=== PATIENT | female | born 1995 | race Caucasian/White ===

== ENCOUNTER 2024-11-24 18:52 | Day surgery (SDC) | payer OTHER, SELFPAY ==
--- OUTSIDE RECORDS SUMMARY | 2024-11-24 18:53 | XMS_ITS | Encounter Summary ---
Author Organization [facility] Address [address] [place] [address] Care Team Providers Care Rayon Winder Name Role Phone No Ref-Primary, Physician Primary Care Provider Natalia Christine MD Unavailable [phone] Meka Sandy APRN RN BIRTHING Unavailable Ioana Cho AuD Unavailable Alfredo Drake MD Unavailable Reason for Visit * Reason Comments Urgent Care Pt lived in an apart ment with mold exposure and then moved-had a bad cough a month ago and now is having heaviness in chest, SOB, L ear pain, fatigue, chest congestion, night sweats Encounter Details Date Type Department Care Team (Late st Contact Info) Description 11/21/2024 1:50 PM CDT Office Visit [facility] [address] [address] Rubi Garcia PA-C [address] [place] [id number] Acute dysfunction of left eustachian tube (Primary Dx); Allergic rhinitis, unspecified seasonality, unspecified trigger Social History Tobacco Use Types Packs/Day Years Used Date Smoking Tobacco: Never Smokeless Tobacco: Never Alcohol Use Standard Drinks/Week Comments Yes 0 (1 standard drink = 0.6 oz pur e alcohol) socailly PHQ-2 Answer Date Recorded PHQ-2 Score 2 11/20/2023 Adolescent Education Answer Date Record ed Getting School Help Needed Not on file 05/10 Comments No Sex and Gender Information Value Date Recorded Sex Assigned at Not on file Legal Sex Female 11:23 AM CDT Gender Identity Not on file Sexual Orientation Not on file documented as of this encounter Last Filed Vital Signs Vital Sign Reading Time Taken Comments Blood Pressure 131/86 11/21/2024 3:08 PM CDT Pulse 77 11/21/2024 3:08 PM CDT Temperature 37.2 C (98.9 F) 11/21/2024 3:08 PM CDT Respiratory Rate 16 11/21/2024 3:08 PM CDT Oxygen Saturation 99% 11/21/2024 3:08 PM CDT Inhaled Oxygen Concentration - - Weight 82.1 kg (181 lb) 11/21/2024 3:08 PM CDT Height - - Body Mass Index 32.06 08/05/2023 5:37 PM NUTRITION AIDES TEACHER documented in this encounter Patient Instructions * Patient Instructions* Rubi Garcia PA-C - 11/21/2024 1:50 PM CDT (H69.92) Acute dysfunction of left eustachian tube (primary encounter diagnosis) Comment: Plan: fluticasone (FLONASE) 50 MCG/ACT nasal spray Flonase 2 sprays each nostril at bedtime for the next 2-3 weeks. You may use a saline nasal spray during the day to help flush out nasal passages and moisturize them. (J30.9) Allergic rhinitis, unspecified seasonality, unspecified trigger Comment: Plan: levocetirizine (XYZAL) 5 MG tablet Take xyzal nightly for the next month Follow up with primary clinic for re-check in the next month, sooner should symptoms persist or worsen. documented in this encounter Progress Notes * Rubi Garcia PA-C - 11/21/2024 1:50 PM CDT Patient presents with: Urgent Care: Pt lived in an apartment with mold exposure and then moved-had a bad cough a month agoand now is having heaviness in chest, SOB, L ear pain, fatigue, chest congestion, night sweats (H69.92) Acute dysfunction of left eustachian tube (primary encounter diagnosis) Comment: Plan: fluticasone (FLONASE) 50 MCG/ACT nasal spray Flonase 2 sprays each nostril at bedtime for the next 2-3 weeks. You may use a saline nasal spray during the day to help flush out nasal passages and moisturize them. (J30.9) Allergic rhinitis, unspecified seasonality, unspecified trigger Comment: Plan: levocetirizine (XYZAL) 5 MG tablet Take xyzal nightly for the next month Follow up with primary clinic for re-check in the next month, sooner should symptoms persist or worsen. At the end of the encounter, I discussed results, diagnosis, medications. Discussed red flags for immediate return to clinic/ER, as well as indications for follow up if no improvement. Patient understood and agreed to plan. Patient was stable for discharge If not improving or if condition worsens, follow up with your Primary Care Provider SUBJECTIVE: Milagros Ramesh is a 29 year old female who presents today with nasal congestion for the past coupleof months. Now with left ear pain for the past couple of days. No ear drainage. Low grade fever a couple of nights ago. Denies any weight loss. Patient Active Problem List Diagnosis ASCUS with positive high risk HPV cervical No past medical history on file. Current Outpatient Medications Medication Sig Dispense Refill Multiple Vitamins-Iron (DAILY-ALESSANDRA/IRON/BETA-CAROTENE) TABS TAKE 1 TABLET BY MOUTH DAILY. (Patient not taking: Reported on 06/05/2020) 30 tablet 7 Social History Tobacco Use Smoking status: Never Smoker Smokeless tobacco: Never Used Substance Use Topics Alcohol use: Not on file Family History Problem Relation Age of Onset Diabetes Mother Diabetes Father ROS: 10 point ROS of systems including Constitutional, Eyes, Respiratory, Cardiovascular, Gastroenterology, Genitourinary, Integumentary, Muscularskeletal, Psychiatric ,neurological were all negative except for pertinent positives noted in my HPI OBJECTIVE: BP 131/86 Pulse 77 Temp 98.9 ??F (37.2 ??C) (Tympanic) Resp 16 Wt 82.1 kg (181 lb) SpO2 99% BMI 32.06 kg/m?? Physical Exam: GENERAL APPEARANCE: healthy, alert and no distress EYES: EOMI, PERRL, conjunctiva clear HENT: ear canals and TM's normal. Nose and mouth without ulcers, erythema or lesions NECK: supple, nontender, no lymphadenopathy RESP: lungs clear to auscultation - no rales, rhonchi or wheezes CV: regular rates and rhythm, normal S1 S2, no murmur noted NEURO: Normal strength and tone, sensory exam grossly normal, normal speech and mentation SKIN: no suspicious lesions or rashes documented in this encounter Plan of Treatment Not on file documented as of this encounter Visit Diagnoses Diagnosis Acute dysfunction of left eustachian tube- Primary Allergic rhinitis, unspecified seasonality, unspecified trigger documented in this encounter Additional Health Concerns Assessment Noted Time PHQ-9 Depression Total Score: 9 03/03/20 3:47 PM CDT documented as of this encounter Care Teams Rayon Winder Relationship Specialty Start Date End Date No Ref-Primary, Physician PCP - General 09/26/21 Natalia Christine MD [address] [place] [address] Assigned PCP 07/31/22 Meka Sandy APRN RN BIRTHING [address] [facility] 100 [place] [address] Assigned OBGYN Provider 03/08/23 Ioana Cho AuD [address] [facility] 200 [place] [address] Tubular Products Fabricator Audiology 05/20/23 [place] [address] [place] [address] [place] [address] Otolaryngology 05/20/23 documented as of this encounter
--- OUTSIDE RECORDS SUMMARY | 2024-11-24 18:53 | XMS_ITS | Encounter Summary ---
Author Organization [facility] Address [address] [place] [address] Care Team Providers Care Drop Wire Hanger Name Role Phone No Ref-Primary, Physician Primary Care Provider Natalia Christine MD Unavailable [phone] Meka Sandy APRN INVENTORY AND PRICING ASSOCIATE Unavailable Ioana Cho AuD Unavailable Alfredo Drake MD Unavailable Encounter Details Date Type Department Care Team (Latest Contact Info) Description 11/21/2024 Travel Social History Tobacco Use Types Packs/Day Years [...] on file documented as of this encounter Plan of Treatment Not on file documented as of this encounter Visit Diagnoses Not on filedocumented in this encounter Additional Health Concerns Assessment Noted Time PHQ-9 Depression Total Score: 9 03/03/20 23 3:47 PM CDT documented as of this encounter Care Teams Drop Wire Hanger Relationship Specialty Start Date End Date No Ref-Primary, Physician PCP - General 09/26/21 Natalia Christine MD [address] [place] [address] Assigned PCP 07/31/22 Meka Sandy APRN INVENTORY AND PRICING ASSOCIATE [address] [facility] 100 [place] [address] Assigned OBGYN Provider 03/08/23 Ioana Cho AuD [address] [place] [address] [address] [place] [address] Health Care Administrator Audiology 05/20/23 Alfredo Drake MD [address] [place] [address] Otolaryngology 05/20/23 documented as of this encounter
--- OUTSIDE RECORDS SUMMARY | 2024-11-24 18:53 | XMS_ITS | Clinical Summary ---
Author Organization [facility] Address [address] [place] [address] Care Team Providers Care Production Expert Name Role Phone No Ref-Primary, Physician Primary Care Provider Natalia Christine MD Unavailable [phone] Meka Sandy APRN PUMPING STATION ENGINEER Unavailable Ioana Cho Unavailable Alfredo Drake MD Unavailable Allergies No known active allergies Medications fluticasone (FLONASE) 50 MCG/ACT nasal sprayIndications :OME (otitis media with effusion), left [place] 1 spray into both nostrils daily 16 g 11 3 Active ibuprofen (ADVIL/MOTRIN) 600 MG tabletIndication s:Throat pain,Left ear pain Take 1 tablet (600 mg) by mouth every 6 hours as needed 30 tablet 4 03/08/20 25 Active drospirenone-eth inyl estradiol (DALI) 3-0.02 MG tabletIndication s:Amenorrhea,PCO S (polycystic ovarian syndrome) TAKE 1 TABLET BY MOUTH DAILY 84 tablet 4 Active fluticasone (FLONASE) 50 MCG/ACT nasal sprayIndications :Acute dysfunction of left eustachian tube [place] 2 sprays into both nostrils daily. 18.2 mL 5 Active levocetirizine (XYZAL) 5 MG tabletIndication s:Allergic rhinitis, unspecified seasonality, unspecified trigger Take 1 tablet (5 mg) by mouth every evening. 30 tablet 1 Active Active Problems Problem Noted Date Diagnosed Date ASCUS with positive high risk HPV cervical 03/03 Overview (10/15/2023): 03/30/20 NIL pap 03/03/23 ASCUS pap, + HR HPV (not 16/18). Plan colp bef 06/03/23 03/12/23 Left message / Result released to patient via [employer] - not read 03/26/23 Left message 04/02/23 Result letter sent by mail 05/08/23 Certified ltr sent. Tracking # [id number] [Result marked as Seen by patient Milagros Ramesh on 05/10/2023 4:18 PM] 05/19/23 Consult visit with provider re: results and amenorrhea. Recommended to have colpo (not scheduled) 06/04/23 Reminder MyChart 07/08/23 [place] not done. Tracking updated for 6 mo colp/pap due 09/03/23 08/20/23 Reminder MyChart 09/16/23 Reminder call - left message 10/15/23 Lost to follow-up for pap tracking Encounters Date Type Department Care Team Description 11/21/2024 1:50 PM CDT Office Visit [facility] [address] [address] Rubi Garcia, PAJyotiC Acute dysfunction of left eustachian tube (Primary Dx); Allergic rhinitis, unspecified seasonality, unspecified trigger 11/21/2024 Travel from Last 3 Months Immunizations Name Administration Dates Next Due TDAP (Adacel,Boostrix) 04/04/2020,03/27/2010 Family History Medical History Relation Comments Diabetes Other Fathers uncle Glaucoma Other paternal great g randmother Relation Status Comments Other Social History Tobacco Use Types Packs/Day Years Used Date Smoking Tobacco: Never Smokeless Tobacco: Never Tobacco Cessation:Counseling Given: No Alcohol Use Standard Drinks/Week Comments Yes 0 (1 standard drink = 0.6 oz pur e alcohol) socailly PHQ-2 Answer Date Recorded PHQ-2 Score 2 11/20/2023 Adolescent Education Answer Date Record ed Getting School Help Needed Not on file 09/23 /2023 Comments No Sex and Gender Information Value Date Recorded Sex Assigned at Not on file Legal Sex Female 11:23 AM CDT Gender Identity Not on file Sexual Orientation Not on file Last Filed Vital Signs Vital Sign Reading Time Taken Comments Blood Pressure 131/86 11/21/2024 3:08 PM CDT Pulse 77 11/21/2024 3:08 PM CDT Temperature 37.2 C (98.9 F) 11/21/2024 3:08 PM CDT Respiratory Rate 16 11/21/2024 3:08 PM CDT Oxygen Saturation 99% 11/21/2024 3:08 PM CDT Inhaled Oxygen Concentration - - Weight 82.1 kg (181 lb) 11/21/2024 3:08 PM CDT Height 160 cm (5' 3) 08/05/2023 5:37 PM DERMATOLOGIST Body Mass Index 32.06 08/05/2023 5:37 PM DERMATOLOGIST Plan of Treatment Health Maintenance Due Date Last Done Comments ADVANCE CARE PLANNING 1997 ANNUAL REVIEW OF HM ORDERS 1997 COLPOSCOPY 06/03/2023 PAP 03/03/2024 03/03/2023, 03/18, 03/30/2020 YEARLY PREVENTIVE VISIT 03/03/2024 03/03/2023 COVID-19 Vaccine ( season) 2024 02/02/2021, 01/05/2021 INFLUENZA VACCINE (#1) 2024 , 05/02/2021, 05/13/2013, Additional history exists PHQ-2 (once per calendar year) 2024 11/20/2023, 03/03/2023, 03/03/2023, Additional history exists DTAP/TDAP/TD IMMUNIZATION (8 - Td or Tdap) 04/04/2030 04/04/2020, 03/27/2010, 03/10/2003, Additional history exists ZOSTER IMMUNIZATION (1 of 2) 2047 HEPATITIS B IMMUNIZATION Completed 998, 1997, 1997 HPV IMMUNIZATION Completed 11/24/2013, , 06/29/2012 MENINGITIS IMMUNIZATION Completed 11/24/2013, 03/27 CHLAMYDIA SCREENING Discontinued 03/03/2023, 0 HEPATITIS C SCREENING Completed 03/03/2023, 012 HIV SCREENING Completed 03/03/2023, 06/29/2012 Pneumococcal Vaccine: Pediatrics (0 to 5 Years) and At-Risk Patients (6 to 49 Years) Aged Out No longer eligible based on patient's age to complete this topic Procedures Procedure Name Priority Date/Time Associated Diagnosis Comments CHLAMYDIA TRACHOMATIS PCR Routine 03/03/2023 4:27 PM CDT Screening for chlamydial disease HIV ANTIGEN ANTIBODY COMBO Routine 03/03/2023 4:15 PM CDT Screening for HIV (human immunodeficiency virus) HEPATITIS C ANTIBODY Routine 03/03/2023 4:15 PM CDT Need for hepatitis C screening test GYNECOLOGIC CYTOLOGY Routine 03/03/2023 3:57 PM CDT Screening for cervical cancer from Last 3 Months or Most Recently Relevant to Health Maintenance Results * CHLAMYDIA TRACHOMATIS PCR (03/03/2023 4:27 PM CDT) Chlamydia trachomatis Negative Negative 03/04/2023 6:09 PM CDT [facility] Comment:A negative result by flight attendant ramp mediated amplification does not preclude the presence of C. trachomatis infection because results are dependent on proper and adequate collection, absence of inhibitors and sufficient rRNA to be detected. Swab VAGINAL STRUCTURE / Unknown Non-blood Collection / Unknown 03/03/2023 4:27 PM CDT 03/03/2023 4:55 PM CDT us Meka Sandy APRN PUMPING STATION ENGINEER LAB - MICRO GENE RAL ORDERABLES Final Result [facility] Inf. Diseases Diag. Lab [address] [facility], [address] [place] [address], [place] [phone] * HIV Antigen Antibody Combo [place] (03/03/2023 4:15 PM CDT) HIV Antigen Antibody Combo Nonreactive Nonreactive 03/04/2023 5:16 PM CDT [facility] DO Comment:HIV-1 p24 Ag & HIV-1 /HIV-2 Ab Not Detected Blood STRUCTURE OF LEFT UPPER LIMB / Unknown Venipuncture / Unknown 03/03/2023 4:15 PM CDT 03/03/2023 4:19 PM CDT Meka Sandy APRN PUMPING STATION ENGINEER LAB - BLOOD ORDE RABRICHY Final Result [facility]Endo [address] [facility], [address] [phone] * Hepatitis C antibody (03/03/2023 4:15 PM CDT) Pathologist [facility] Hepatitis C Antibody Nonreactive Nonreactive 03/04/2023 6:31 PM CDT SPECIALTY CORE/PROT/EN DO Blood STRUCTURE OF LEFT UPPER LIMB / Unknown Venipuncture / Unknown 03/03/2023 4:15 PM CDT 03/03/2023 4:19 PM CDT Narrative SPECIALTY CORE/PROT/ENDO - 03/04/2023 6:31 PM CDT Assay performance characteristics have not been established for newborns, infants, and children. us Meka Sandy APRN, CNP LAB - BLOOD ORDE BALAJI Final Result [facility] Specialty Core/Prot/Endo [address] [facility], [address] [phone] * (ABNORMAL) Pap thin layer screen reflex to HPV if ASCUS - recommended age 25 - 29 years (:57 PM CDT) Pathologist [facility] Interpretation Atypical squamous cells of undetermined significance (ASC-US)(A) 03/10/2023 4:10 PM CDT LABORATORY Comment Papanicolaou Test Limitations: Cervical cytology is a screening test with limited sensitivity, and regular screening is critical for cancer prevention. Pap tests are primarily effective for the diagnosis/preven tion of squamous cell carcinoma, not adenocarcinoma or other cancers. 03/10/2023 4:10 PM CDT LABORATORY Specimen Adequacy Satisfactory for evaluation, endocervical/tra nsformation zone component present 03/10/2023 4:10 PM CDT [facility] Clinical Information none 03/10/2023 4:10 PM CDT [facility] Reflex Testing Yes if ASCUS 03/10/20 4:10 PM CDT [facility] Previous Abnormal? No 03/10/2023 4:10 PM CDT [facility] Performing Labs The technical component of this testing was completed at [facility] 03/10/2023 4:10 PM CDT [facility] Brushing CERVIX UTERI STRUCTURE / Unknown Non-blood Collection / Unknown 03/03/2023 3:57 PM CDT 03/03/2023 4:55 PM CDT us Meka Sandy HUMAN SERVICES INSTRUCTOR PUMPING STATION ENGINEER LAB - KALLIE AP Final Result LABORATORY [facility] Acute Care Lab [address], [address] [place] [address], [place] [phone] SPECIALTY LABS Specialty Lab [address] [facility], [address] [place] [address], [place] [phone] from Last 3 Months or Most Recently Relevant to Health Maintenance Insurance [facility] [place] [address] [place] [address] CHOICE Care Teams Production Expert Relationship Specialty Start Date End Date No Ref-Primary, Physician PCP - General 09/26/21 Natalia Christine MD [address] [place] [address] Assigned PCP 07/31/22 Meka Sandy APRN PUMPING STATION ENGINEER [address] [facility] 100 [place] [address] Assigned OBGYN Provider 03/08/23 Ioana Cho AuD [address] [facility] 200 [place] [address] Features Reporter Audiology 05/20/23 Alfredo Drake MD [address] [place] [address] [place] [address] Otolaryngology 05/20/23
[2024-11-24 19:11] VITALS: BP 145/88; PULSE 90; RESP 16; TEMP 37.4; O2SAT 98; BMI 31.7
[2024-11-24 20:03] LABS: Appearance Urine Clear (Clear); Bilirubin Urine Negative (Negative); Blood Urine Trace-intact (Negative); Color Urine Yellow (Yellow); Glucose Urine Negative (Negative); Ketones Urine Negative (Negative); Leukocyte Esterase Urine Negative (Negative); Nitrite Urine Negative (Negative); Protein Urine Negative (Negative); Urobilinogen Urine 0.2 (0.2-1.0)
--- NOTE | 2024-11-24 20:04 | ED_ITS ---
HPI - Abdominal Pain General Time Seen by Provider: 19:57 Date Seen: 11/24/24 Chief Complaint: Abdominal Pain Stated Complaint: lower abdominal pain Time Seen by Provider: 11/24/24 19:57 Source: patient and RN notes reviewed Mode of arrival: ambulatory Limitations: no limitations History of Present Illness HPI narrative: Patient is a 29-year-old female coming in with 2 day history of right lower quadrant abdominal pain. She has had some nausea but no diarrhea, no vomiting. She notes some constipation for 4 days. She did start her menstrual cycle today. She is sexually active, sometimes uses contraception. She has never had a sexually transmitted infection per her report, has no concerns with this. Has had no concerning vaginal discharge prior. About 3 days ago did have a little dysuria, thought perhaps she could be starting a urinary tract infection. That did not continue. She states she has no history of abdominal surgeries before but does note that she has endometriosis and PCOS. She is not aware of any family history of appendicitis. She has had ovarian cysts before but does not recollect that they have felt like this. She did originally go to urgent care but was referred here. She declines anything for pain management at this time. She does states that she was seen in urgent care for cough on Friday, did bring up the nausea as it had started then. Patient called in sick to work on Friday, had nausea and just really was not feeling good, had some mild abdominal discomfort. Symptoms have progressed bring her ultimately to the ER tonight from urgent care. Related Data Home Medications ?Medication ?Instructions ?Recorded ?Confirmed fluticasone propionate 50 2 spray intranasal DAILY 11/24/24 11/24/24 mcg/actuation nasal spray,suspension Previous Rx's ?Medication ?Instructions ?Recorded hydrocodone 5 mg-acetaminophen 325 1 tab PO Q6H PRN pain #25 tabs 04/10/25 mg tablet Allergies Allergy/AdvReac Type Severity Reaction Status Date / Time No Known Drug Allergies Allergy Verified 11/24/24 22:09 Review of Systems Status of ROS Reports: 6 or more systems reviewed and unremarkable except as noted in History and below [facility] Medical History (Updated 11/24/24 @ 23:21 by Pam Vazquez MD) PCOS (polycystic ovarian syndrome) ?E28.2 - Polycystic ovarian syndrome (ICD-10) Surgical History (Updated 11/24/24 @ 20:10 by Sami Hyde RN) No significant past surgical history Social History (Updated 11/25/24 @ 05:14 by Giuseppe Guan MD) Narrative: Patient does admit to smoking and drinking alcohol. 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 Exam Const: Vital Signs, click to edit/add: Vital Signs - 24 hr 11/24/24 19:11 11/24/24 22:25 11/24/24 22:44 Temperature 99.3 F 99.3 F 99.3 F Pulse Rate [Pulse Oximeter] 90 85 Respiratory Rate 16 16 Blood Pressure [Ri ght Upper Arm] 145/88 H 131/85 Pulse Oximetry 98 98 Oxygen Delivery Me thod Room Air Room Air This 29-year-old female is alert, interactive, no apparent distress. Sclera clear, face atraumatic. Neck is supple, no adenopathy. Lungs are clear, good air entry, no wheezing or crackles, no tachypnea, no accessory muscle use. CV regular rate and rhythm, no murmur, normal S1-S2, no S3-S4. Abdomen is soft, normal bowel sounds, nondistended but tender right lower quadrant with some mild guarding but no rebound. I do not feel any organomegaly. Documenting provider has reviewed patient's vital signs: yes Course Course ED Course: This 29-year-old female is presenting with right lower quadrant abdominal pain with reported history of endometriosis and polycystic ovarian syndrome, currently menstruating. Need to confirm negative test to rule out miscarriage and ectopic . She currently is hemodynamically stable. She reportedly had a fever earlier in urgent care of 100.1? F. This does make things like appendicitis more concerning. Need to rule out surgical abdomen. Will proceed with appropriate labs including urinalysis, urine test and CT abdomen and pelvis with IV contrast. Reevaluation(s) Time of Reevaluation #1: 22:32 Reevaluation #1: Have reviewed with patient her CT findings of acute appendicitis. She is a bit tearful, has increased pain and nausea. Will order IV fluids, Toradol and Zofran for her. Reviewed with her that I will be talking to our surgeon on- call. Patient last ate around noon today. She had some coconut water around 5:45 p.m. tonight. She did take a couple sips of water out of the drinking fountain prior to coming into the ER tonight, this was in our lobby. Consultations Consultation #1: Called our on-call surgeon Dr. Guan. She will be reviewing images and contacting me back. Surgery will be at 530am, zosyn ordered. Patient will need to board in ED overnight as there are no beds available at this time. Time: 22:35 Vital Signs Vital signs: Initial Vital Signs Temperature 99.3 F 11/24/24 19:11 Temperature Source Temporal Artery Scan 11/24/24 19:11 Pulse Rate 90 11/24/24 19:11 Respiratory Rate 16 11/24/24 19:11 Blood Pressure 145/88 H 11/24/24 19:11 Blood Pressure Mean 107 H 11/24/24 19:11 Pulse Oximetry 98 11/24/24 19:11 Oxygen Delivery Method Room Air 11/24/24 19:11 Vital Signs Temperature 99.3 F 11/24/24 19:11 Pulse Rate 90 11/24/24 19:11 Respiratory Rate 16 11/24/24 19:11 Blood Pressure 145/88 H 11/24/24 19:11 Pulse Oximetry 98 11/24/24 19:11 Oxygen Delivery Method Room Air 11/24/24 19:11 Temperature 99.2 F 11/25/24 07:01 Pulse Rate 73 11/25/24 08:00 Respiratory Rate 16 11/25/24 08:00 Blood Pressure 129/96 H 11/25/24 08:00 Pulse Oximetry 96 11/25/24 08:00 Oxygen Delivery Method Room Air 11/25/24 08:00 Medications Administered Medications: Discontinued Medications Generic Name Dose Route Start Last Admin Trade Name Freq PRN Reason Stop Dose Admin Hydrocodone Bitart/Acetaminophen 1 - 2 tab 11/25/24 06:31 11/25/24 07:59 Hydrocodone-Acetamin 5-325 Mg 1 Tab PO 1 tab Q4H PRN Administration Pain Bupivacaine HCl 30 ml 11/25/24 06:07 11/25/24 05:50 Bupivacaine 0.25% 30 Ml INJECTION 11/25/24 06:08 10 ml ONCE ONE Administration Cefazolin Sodium 0 gm 11/25/24 05:53 11/25/24 05:42 Cefazolin 1 Gm Inj IVP 11/25/24 05:54 2 gm ONCE ONE Administration Sodium Chloride 1,000 mls @ 500 mls/hr 11/24/24 22:34 11/25/24 01:25 0.9 % Sodium Chloride 1000 Ml IV 11/25/24 00:33 Infused .Q2H FUAD Infusion Piperacillin Sod/Tazobactam 100 mls @ 200 mls/hr 11/24/24 22:47 11/24/24 23:42 Sod 3.375 gm/ Sodium Chloride IVPB 11/24/24 22:48 Infused ONCE ONE Infusion Lactated Ringer's 1,000 mls @ 125 mls/hr 11/24/24 23:20 11/25/24 07:59 Lactated Ringers 1000 Ml IV Infused .Q8H FUAD Infusion Ketorolac Tromethamine 15 mg 11/24/24 22:33 11/24/24 22:44 Ketorolac 15 Mg/Ml Inj IVP 11/24/24 22:34 15 mg ONCE ONE Administration Lidocaine/Epinephrine 20 ml 11/25/24 06:07 11/25/24 05:50 Lidocaine 1%-Epi 1:100,000 INFILTRATI 11/25/24 06:08 10 ml ONCE ONE Administration Ondansetron HCl 4 mg 11/24/24 22:33 11/24/24 22:44 Ondansetron 2 Mg/Ml Inj IVP 11/24/24 22:34 4 mg ONCE ONE Administration Ondansetron HCl 4 mg 11/24/24 23:19 11/25/24 07:08 Ondansetron 2 Mg/Ml Inj IVP 4 mg Q6H PRN Administration Nausea MDM - Abdominal Pain Lab Data Attestation: I reviewed the patient's lab results. Labs: Lab Results 11/24/24 11/24/24 11/24/24 Range/Units 19:54 20:04 20:05 WBC 13.16 H (4.50-11.00) K/uL RBC 5.20 (4.00-5.20) m/uL Hgb 15.3 (12.0-16.0) gm/dL Hct 45.6 (33.0-51.0) % MCV 88 (80-100) fL MCH 29 (26-34) pg MCHC 34 (32-36) gm/dL RDW Coeff of [place] 11.7 (11.5-15.5) % Plt Count 327 (140-440) K/uL Neut % (Auto) 66.4 (42.0-72.0) % Lymph % (Auto) 20.6 (20-44) % [place] % (Auto) 9.3 (0.0-11.0) % Eos % (Auto) 3.4 (0.0-7.0) % Baso % (Auto) 0.2 (0.0-3.0) % Neut # (Auto) 8.70 H (1.7-7.0) K/uL Lymph # (Auto) 2.70 (0.90-2.90) K/uL [place] # (Auto) 1.20 H (0.00-0.90) K/UL Eos # (Auto) 0.40 (0.00-0.50) K/uL Baso # (Auto) 0.00 (0.00-0.30) K/uL Abs Immat Gran (auto) 0.00 (0.00-0.30) K/uL Imm/Tot Granulo (auto) 0.1 % Sodium 137 (135-149) mmol/L Potassium 4.2 (3.6-5.1) mmol/L Chloride 105 (96-114) mmol/L Carbon Dioxide 22 (20-32) mmol/L Anion Gap 10 (7-15) mEq/L BUN 11 (5-24) mg/dL Creatinine 0.7 (0.5-1.5) mg/dL Estimated Creat Clear 99.86 Estimated GFR 121 ml/min Glucose 89 (60-115) mg/dL Lactate 1.2 (0.5-1.9) mmol/L Calcium 9.1 (8.4-10.6) mg/dL C-Reactive Protein 0.9 (0.5-1.0) mg/dL Urine Color Yellow (Yellow) Urine Appearance Clear (Clear) Urine pH 7.0 (5.0-8.5) Ur Specific [place] 1.020 (1.000-1.030) Urine Protein Negative (Negative) Urine Glucose (UA) Negative (Negative) Urine Ketones Negative (Negative) Urine Blood Trace-intact A (Negative) Urine Nitrite Negative (Negative) Urine Bilirubin Negative (Negative) Urine Urobilinogen 0.2 (0.2-1.0) Ur Leukocyte Esterase Negative (Negative) Urine RBC 0-2 (0-2) Urine WBC 0-2 (0-5) Ur Squamous Epith Cells Few (None-Few) Urine Bacteria None (None) Urine HCG, Qual Negative (Negative) Lab Acknowledgement Test Added Imaging Data CT scan - abdomen: Attestation: I have reviewed the pertinent imaging results. My impression: Do believe I see dilated appendix and inflammatory change but will await Radiology over-read. Radiologist's impression: Patient: RAMONA MORENO Facility:?[facility] Patient ID:?[id number] Site Patient ID:?[id number]. Site :?[id number] Study:?CT-Abdomen/Pelvis 88CC [id number]/9/2025 9:58:20 PM Ordering Physician:Kaylah Orozco Final Report: INDICATION: Right lower quadrant pain, history or endometriosis and Polycystic Ovarian Syndrome TECHNIQUE: CT Abdomen and pelvis with i.v. contrast. Coronal and sagittal reformats were obtained. CONTRAST: 88 mL Isovue 370 COMPARISON: None FINDINGS: Lower chest: Unremarkable. Liver: Unremarkable. Spleen: Unremarkable. Pancreas: Unremarkable. Gallbladder: Unremarkable. Kidney: Unremarkable. No kidney or ureteral stones or obstruction seen. Adrenal: Unremarkable. Bowel: The stomach, small bowel, and colon are unremarkable. The appendix is distended measuring 7 mm. There is moderate wall thickening and surrounding inflammatory changes noted. No periappendiceal abscess is seen. Vascular: Unremarkable. Lymph: Unremarkable. Peritoneum: Unremarkable. No pneumoperitoneum is seen. No significant ascites is noted. Pelvis: Unremarkable. Soft tissue: Unremarkable. Bone: Unremarkable for age. IMPRESSION: 1. The appendix is distended measuring 7 mm. There is moderate wall thickening and surrounding inflammatory changes noted. No periappendiceal abscess is seen. These findings are consistent with acute appendicitis. Dictated by Hood Chin MD @ 11/24/2024 10:16:52 PM Please note that all CT scans at this facility use dose modulation, iterative reconstruction, and/or weight-based dosing when appropriate to reduce radiation dose to as low as reasonably achievable. Dictated by: Hood Chin MD @ 11/24/2024 22:23:45 (Electronic Signature) Discharge Plan Discharge Clinical Impression: Acute appendicitis Patient Disposition: XFER to OR
--- NOTE | 2024-11-24 20:05 | CRLHL7_ITS ---
For Patients: As a result of the Cures Act, medical imaging exams and procedure reports are released immediately into your electronic medical record. You may view this report before your referring provider. If you have questions, please contact your health care provider. INDICATION: Right lower quadrant pain, history or endometriosis and Polycystic Ovarian Syndrome TECHNIQUE: CT Abdomen and pelvis with i.v. contrast. Coronal and sagittal reformats were obtained. CONTRAST: 88 mL Isovue 370 COMPARISON: None FINDINGS: Lower chest: Unremarkable. Liver: Unremarkable. Spleen: Unremarkable. Pancreas: Unremarkable. Gallbladder: Unremarkable. Kidney: Unremarkable. No kidney or ureteral stones or obstruction seen. Adrenal: Unremarkable. Bowel: The stomach, small bowel, and colon are unremarkable. The appendix is distended measuring 7 mm. There is moderate wall thickening and surrounding inflammatory changes noted. No periappendiceal abscess is seen. Vascular: Unremarkable. Lymph: Unremarkable. Peritoneum: Unremarkable. No pneumoperitoneum is seen. No significant ascites is noted. Pelvis: Unremarkable. Soft tissue: Unremarkable. Bone: Unremarkable for age. IMPRESSION: 1. The appendix is distended measuring 7 mm. There is moderate wall thickening and surrounding inflammatory changes noted. No periappendiceal abscess is seen. These findings are consistent with acute appendicitis. Dictated by Hood Chin MD @ 11/24/2024 10:16:52 PM Please note that all CT scans at this facility use dose modulation, iterative reconstruction, and/or weight-based dosing when appropriate to reduce radiation dose to as low as reasonably achievable. Dictated by: Hood Chin MD @ 11/24/2024 22:23:45 (Electronically Signed)
[2024-11-24 20:11] LABS: Lactate* 1.2 mmol/L (0.5-1.9)
[2024-11-24 20:12] LABS: Basophils Percent Auto 0.2 % (0.0-3.0); Eosinophils Percent Auto 3.4 % (0.0-7.0); Hematocrit 45.6 % (33.0-51.0); Hemoglobin* 15.3 gm/dL (12.0-16.0); Immature Granulocytes Pct Auto 0.1 %; Lymphocytes Percent Auto 20.6 % (20-44); Mean Corpuscular HGB Conc 34 gm/dL (32-36); Mean Corpuscular Hemoglobin 29 pg (26-34); Mean Corpuscular Volume 88 fL (80-100); Monocytes Percent Auto 9.3 % (0.0-11.0); Neutrophils Percent Auto 66.4 % (42.0-72.0); Platelet Count* 327 K/uL (140-440); RDW Coefficient of Variation % 11.7 % (11.5-15.5); White Blood Count* 13.16 K/uL (4.50-11.00)
[2024-11-24 20:14] LABS: Ur HCG Qualitative* Negative (Negative)
[2024-11-24 20:17] LABS: Slide Review Reflex No
[2024-11-24 20:17] LABS: RBC Urine 0-2 (0-2); Squamous Epithelial Cell Urine Few (None-Few); WBC Urine 0-2 (0-5)
[2024-11-24 20:27] LABS: Chloride* 105 mmol/L (96-114); Potassium* 4.2 mmol/L (3.6-5.1); Sodium* 137 mmol/L (135-149)
[2024-11-24 20:31] LABS: Anion Gap 10 mEq/L (7-15); Blood Urea Nitrogen* 11 mg/dL (5-24); Calcium* 9.1 mg/dL (8.4-10.6); Carbon Dioxide* 22 mmol/L (20-32); Creatinine* 0.7 mg/dL (0.5-1.5); Est. Creatinine Clearance* 99.86; Estimated Glomerular Filt Rate 121 ml/min; Glucose* 89 mg/dL (60-115)
--- OUTSIDE RECORDS SUMMARY | 2024-11-24 20:31 | XMS_ITS | Clinical Summary ---
Author Organization [facility] Address [address] [place] [id number] Care Team Providers Care Heating Worker Name Role Phone No Ref-Primary, Physician Primary Care Provider Natalia Christine MD Unavailable [phone] Meka Sandy APRN ELEVATOR INSTALLER Unavailable Ioana Cho Unavailable Alfredo Drake MD Unavailable Allergies No known active allergies Medications fluticasone (FLONASE) 50 MCG/ACT nasal sprayIndications :OME (otitis media with effusion), left [place] 1 spray into both nostrils daily 16 [...] sprayIndications :Acute dysfunction of left eustachian tube [place] 2 sprays into both nostrils daily. 18.2 [...] message / Result released to patient via [facility] - not read 03/26/23 Left message 04/02/23 Result letter sent by mail 05/08/23 Certified ltr sent. Tracking # [id number] [Result marked as Seen by patient Milagros Ramesh on 05/10/2023 4:18 PM] 05/19/23 Consult visit with provider re: results and amenorrhea. Recommended to have colpo (not scheduled) 06/04/23 Reminder MyChart 07/08/23 Foster not done. Tracking updated for 6 mo colp/pap due 09/03/23 08/20/23 Reminder MyChart 09/16/23 Reminder call - left message 10/15/23 Lost to follow-up for pap tracking Encounters Date Type Department Care Team Description 11/21/2024 1:50 PM CDT Office Visit [facility] [address] [address] Rubi Garcia, PAJyotiC Acute dysfunction [...] 160 cm (5' 3) 08/05/2023 5:37 PM MEDICAL EDUCATION MANAGER Body Mass Index 32.06 08/05/2023 5:37 PM MEDICAL EDUCATION MANAGER Plan of Treatment Health Maintenance Due Date [...] [facility] Comment:A negative result by suspect artist mediated amplification does not preclude the presence of C. trachomatis infection because results are dependent on proper and adequate collection, absence of inhibitors and sufficient rRNA to be detected. Swab VAGINAL STRUCTURE / Unknown Non-blood Collection / Unknown 03/03/2023 4:27 PM CDT 03/03/2023 4:55 PM CDT us Meka Sandy APRN ELEVATOR INSTALLER LAB - MICRO GENE RAL ORDERABLES Final Result [facility] Inf. Diseases Diag. Lab [address] [facility], [address] [place] [address], [place] [phone] * HIV Antigen Antibody Combo [employer] (03/03/2023 4:15 PM CDT) HIV Antigen Antibody Combo Nonreactive Nonreactive 03/04/2023 5:16 PM CDT [facility]EN DO Comment:HIV-1 p24 Ag & HIV-1 /HIV-2 Ab Not Detected Blood STRUCTURE OF LEFT UPPER LIMB / Unknown Venipuncture / Unknown 03/03/2023 4:15 PM CDT 03/03/2023 4:19 PM CDT Meka Sandy APRN ELEVATOR INSTALLER LAB - BLOOD ORDE RABRICHY Final Result [facility]ENDO [facility]/Prot/Endo [address] [facility], [address] [phone] * Hepatitis C antibody (03/03/2023 4:15 PM CDT) Pathologist [facility] Hepatitis C Antibody Nonreactive Nonreactive [...] Result [facility]PROT/ENDO Specialty Core/Prot/Endo [address] [facility], [address] [phone] * (ABNORMAL) Pap thin layer screen reflex to HPV if ASCUS - recommended age 25 - 29 years (:57 PM CDT) Pathologist [facility] Interpretation Atypical squamous cells of [...] component of this testing was completed at [facility] 03/10/2023 4:10 PM CDT SPECIALTY LABS Brushing CERVIX UTERI STRUCTURE / Unknown Non-blood Collection / Unknown 03/03/2023 3:57 PM CDT 03/03/2023 4:55 PM CDT us Meka Sandy BALL POINTS INSPECTOR ELEVATOR INSTALLER LAB - KALLIE AP Final Result LABORATORY [facility] Acute Care Lab [address], [address] [place] [address], [place] [phone] SPECIALTY LABS Specialty Lab [address] [facility], [address] [place] [address], [place] [phone] from Last 3 Months or Most Recently Relevant to Health Maintenance Insurance [facility] [place] [address] [place] [address] CHOICE Care Teams Heating Worker Relationship Specialty Start Date End Date No Ref-Primary, Physician PCP - General 09/26/21 Natalia Christine MD [address] [place] [address] Assigned PCP 07/31/22 Meka Sandy APRN ELEVATOR INSTALLER [address] [facility] [address] [place] [address] Assigned OBGYN Provider 03/08/23 Ioana Cho AuD [address] [facility] [address] [place] [address] Welding Machine Operator [employer] [facility] 05/20/23 Alfredo Drake MD [address] [place] [address] [place] [address] Otolaryngology 05/20/23
--- OUTSIDE RECORDS SUMMARY | 2024-11-24 20:31 | XMS_ITS | Clinical Summary ---
Author Organization [facility] Address [address] [place] [address] Care Team Providers Care Structural Steel Worker Helper Name Role Phone Rubi Riddle NP Primary Care Provider [phone] Allergies No known active allergies Medications Calcium-Magnesium- Zinc tab Take by mouth. 0 0 Active Biotin 1 mg tablet Take by mouth. 0 0 Active norethindrone-ethi nyl estradiol (LOESTRIN 09/06, ,) 1-20 mg-mcg tabletIndications: Encounter for initial prescription of contraceptive pills Take 1 tablet by mouth once daily. 3 Package 3 0 Active drospirenone-ethin yl estradioL (DALI) 3-0.02 mg tablet Take 1 Tablet by mouth once daily. Active fluticasone (50 mcg per actuation) nasal solution (FLONASE) Inhale 1 [place] into affected nostril(s). 3 Active Active Problems No known active problems Resolved Problems Problem Noted Date Diagnosed Date Resolved Date Closed nondisplaced fracture of fifth metacarpal bone of left hand with routine healing 07/22/2017 03/30/2020 Closed nondisplaced fracture of proximal phalanx of left little finger 06/17/2017 03/30/2020 Amenorrhea 05/19/2013 03/30/2020 Overview (03/30/2020): Possible PCOS on ultrasound 04/2013 menarche age 20 Adjustment disorder with mix ed anxiety and depressed mood 05/13/2013 03/30/2020 Post concussion syndrome 06/29/2012 Immunizations Immunization Administration Dates Next Due DTaP 03/10/2003, 9,1997,08/22,1997 Hepatitis B (Peds) 1997,1997, 997 Hib Conjugate, Unspecified 12/07/1998 Human Papilloma Virus Vaccine 11/24/2013, 013,06/29/2012 Inactivated Polio Vaccine 03/10/2003,01/1998,1997,05/19 Influenza Virus, Unspecified 05/13/2013,06/29/20 12 Influenza, IIV3 (Age >=3 years) 05/13/2013,06/29 MENINGOCOCCAL VACCINE 2 VIAL 2MO-55YO (MENVEO) 03/27/2010 MMR 03/10/2003,03/23/1998 Meningococcal Vaccine (Menactra) 11/24/2013,03/18 Tdap 04/04/2020,03/27/2010 Tuberculin (PPD) 06/24/2017,06/24/2016 Varicella Vaccine 03/27/2010,03/23/1999 Family History Medical History Relation Name Comments Other Brother pt twin brother Glaucoma Other PGGM Hypertension Paternal Grandfather storke or CT? GI Disease Paternal Grandmother Hep C Relation Name Status Comments Brother Alive Father Alive Maternal Grandfather Maternal Grandmother Mother Alive Other Paternal Grandfather Paternal Grandmother Alive Sister Alive Social History Tobacco Use Types Packs/Day Years Used Date Smoking Tobacco: Passive Smo ke Exposure - Never Smoker Smokeless Tobacco: Never Tobacco Cessation:Counseling Given: Yes Comments:parents smoke outside Alcohol Use Standard Drinks/Week Comments Yes 0 (1 standard drink = 0.6 oz pur e alcohol) PHQ-2 Answer Date Recorded PHQ-2 TOTAL SCORE 1 03/30/2020 Social Connections Answer Date Recorded Do you often feel lonely or isolated from those around you? 0 05/05/2024 Financial Resource Strain Answer Date R ecorded Difficulty of Paying Living Expenses 3 09/18/2024 Difficulty of Paying Living Expenses Not on file 09/18/2024 Food Insecurity Answer Date Recorded Do you worry your food will run out before you are able to buy more? 1 05/05/2024 Transportation Needs Answer Date Record ed Does lack of transportation keep you from medica l appointments? 1 05/05/2024 Does lack of transportation keep you from work, meetings or getting things that you need? 1 05/05/2024 Housing Stability Answer Date Recorded What is your housing situation today? 1 05/05/2024 Utilities Answer Date Recorded Do you have trouble paying f or utilities (for example, heat, electricity, water, phone)? 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 Gender Identity Not on file Sexual Orientation Not on file Occupation Industry Job Start Date Job End Date furloughed Not on file Not on file Not on file Obstetrics History Last Filed Vital Signs Vital Sign Reading Time Taken Comments Blood Pressure 123/82 05/05/2024 2:17 PM CDT Pulse 76 05/05/2024 2:17 PM CDT Temperature 36.9 C (98.5 F) 05/05/2024 2:17 PM CDT Respiratory Rate 16 05/05/2024 2:17 PM CDT Oxygen Saturation 98% 05/05/2024 2:17 PM CDT Inhaled Oxygen Concentration - - Weight 71.4 kg (157 lb 4.8 oz) 05/05/2024 2:17 P M CDT Height 159.5 cm (5' 2.8) 03/30/2020 1:45 PM CDT Body Mass Index 28.05 03/30/2020 1:45 PM CDT Plan of Treatment Health Maintenance Due Date Last Done Comments Hepatitis C screening for age 18-79 2015 06/29/2012 BMI (ht and wt on same day) for age 18+ 03/30/2021 03/30/2020, 08/19/2016, 01/09/2016, Additional history exists Depression screening for age 12+ 04/03/2021 04/03/2020, 03/30/2020, 08/19/2016 Pap test for age 21-65 03/30/2023 03/30/2020 COVID-19 vaccine series ( season) 2024 02/02/2021, 01/05/2021 Influenza Vaccine (Season Ended) 2025 05/13/2013, 05/13/2013, 06/29/2012, Additional history exists Tetanus booster 04/04/2030 04/04/2020, 03/27/2010 HIV for age 15-65 Completed 06/29/2012 Tdap Completed 04/04/2020, 03/27/2010 Pneumococcal series for age 6-49 Aged Out No longer eligible based on patient's age to complete this topic Procedures Procedure Name Priority Date/Time Associated Diagnosis Comments SPRINKLER IRRIGATION EQUIPMENT MECHANIC THIN PREP PAP SCREEN IMAGED Routine 03/30/2020 3:10 PM CDT Pap smear for cervical cancer screening ANTI HIV 1/2 Routine 06/29/2012 4:56 PM STEAM SHOVEL OILER Screen for STD (sexually transmitted disease) ANTI HCV Routine 06/29/2012 4:56 PM STEAM SHOVEL OILER Screen for STD (sexually transmitted disease) from Last 3 Months or Most Recently Relevant to Health Maintenance Results * SPRINKLER IRRIGATION EQUIPMENT MECHANIC THIN PREP PAP SCREEN IMAGED (03/30/2020 3:10 PM CDT) Case Report Gynecologic Cytology Report Case: [id number] Authorizing Provider: Rubi Riddle NP Collected: 03/30/2020 1510 [facility] Received: 03/30/2020 1511 Clinic First Screen: Minerva Rasheed Specimen: SPRINKLER IRRIGATION EQUIPMENT MECHANIC ThinPrep Vial Screening, Cervical 04/07/2020 6:34 PM CDT [facility] INTERPRETATION/ RESULT NEGATIVE FOR INTRAEPITHELIAL LESION OR MALIGNANCY (NIL) (none) 04/07/2020 6:34 PM CDT [facility] at 1834 CDT SPECIMEN ADEQUACY Satisfactory for evaluation Endocervical component present 04/07/2020 6:34 PM CDT [facility] HPV REQUEST HPV if ASCUS 04/07/2020 6:34 PM CDT [facility] Date of LMP 03/26/2020 04/07/2020 6:34 PM CDT [facility] Last Pap Date first pap 04/07/2020 6:34 PM CDT [facility] Last Pap Result First Pap/Unknown 6:34 PM CDT [facility] Abnormal Pap or Comfrey Bx in last 5 years No 04/07/2020 6:34 PM CDT [facility] Menstrual Status Regular Periods 04/07/2020 6:34 PM CDT [facility] Comfrey Bx Done Today No 04/07/2020 6:34 PM CDT [facility] Additional Information None given 04/07/2020 6:34 PM CDT [facility] Comment: Cytology is screened at [facility] - [address], [place] [address] and [facility] - [address], [place] [address] and [facility] - [address] [place] [address] [facility] - [address], [place] [address] Automated Review Successful 04/07/2020 6:34 PM CDT [facility] Comment:Specimen processed s uccessfully by automated receiving room clerk device, ThinPrep Imaging System, [employer] Note The pap test is a screening technique, not a diagnostic procedure. It is used primarily to screen for squamous cancers and precursor lesions. Published studies have shown that it is subject to both false negative and false positive results. The pap test should not be used as the sole means to diagnose or exclude pre-malignant and malignant lesions. 04/07/2020 6:34 PM CDT [facility] Other (Cervical) Non-Blood / Unknown 03/30/2020 3:10 PM CDT 03/30/2020 3:11 PM CDT uRbi Riddle NP PATHOLOGY/CYTOLOGY Final Result [facility] [address] [place] [address], [place] * ANTI HCV (06/29/2012 4:56 PM STEAM SHOVEL OILER) ANTI HCV Non-reacti ve [facility] Blood specimen (specimen) BLOOD SPECIMEN / Unknown 06/29/2012 4:56 PM STEAM SHOVEL OILER 06/29/2012 4:47 PM STEAM SHOVEL OILER us Mina Carpiolow DO SEND OUTS Final Res ult [facility] INTERNAL ZIP [id number] [place] [address] * ANTI HIV 1/2 (06/29/2012 4:56 PM STEAM SHOVEL OILER) ANTI HIV 1/2 Non-reacti ve [facility] Blood specimen (specimen) BLOOD SPECIMEN / Unknown 06/29/2012 4:56 PM STEAM SHOVEL OILER 06/29/2012 4:47 PM STEAM SHOVEL OILER us Mina Parks DO SEND OUTS Final Res ult Performing Organization Address City[facility]/ZIP Co de Phone Number [facility] INTERNAL ZIP [phone] [place] [address] from Last 3 Months or Most Recently Relevant to Health Maintenance Insurance [facility] [place] [address] * Guarantor: RICARDO FARRELL Account Type Relation to Patient Date of Phone Billing Address [employer] ATTN AMADOU LLOYD [address] [place] [address] Care Teams Structural Steel Worker Helper Relationship Specialty Start Date End Date Rubi Riddle NP [address] [place] [address] [place] [address] PCP - General Family Practice 03/30/20
--- OUTSIDE RECORDS SUMMARY | 2024-11-24 20:31 | XMS_ITS | Encounter Summary ---
Author Organization [facility] Address [address] [place] [address] Care Team Providers Care Drafter Cartographic Name Role Phone No Ref-Primary, Physician Primary Care Provider Natalia Christine MD Unavailable [phone] Meka Sandy APRN EMERGENCY DEPT TECH Unavailable Ioana Cho AuD Unavailable Alfredo Drake [...] documented as of this encounter Care Teams Drafter Cartographic Relationship Specialty Start Date End Date No Ref-Primary, Physician PCP - General 09/26/21 Natalia Christine MD [address] [place] [address] Assigned PCP 07/31/22 Meka Sandy APRN EMERGENCY DEPT TECH [address] [facility] 100 [place] [address] Assigned OBGYN Provider 03/08/23 Ioana Cho AuD [address] [place] [address] [address] [place] [address] Sock Lining Examiner Audiology 05/20/23 Alfredo Drake MD [address] [place] [address] Otolaryngology 05/20/23 documented as of this encounter
--- OUTSIDE RECORDS SUMMARY | 2024-11-24 20:32 | XMS_ITS | Encounter Summary ---
Author Organization [facility] Address [address] [place] [address] Care Team Providers Care Mixer Runner Name Role Phone No Ref-Primary, Physician Primary Care Provider Natalia Christine MD Unavailable [phone] Meka Sandy APRN PROFESSIONAL SERVICES CONSULTANT Unavailable Ioana Cho AuD Unavailable Alfredo Drake [...] Description 11/21/2024 1:50 PM CDT Office Visit [facility] [address] [phone] Rubi Garcia PA-C [address] [place] [id number] Acute dysfunction of left eustachian tube (Primary [...] Body Mass Index 32.06 08/05/2023 5:37 PM CORPORATE SALES MANAGER documented in this encounter Patient Instructions * [...] documented as of this encounter Care Teams Mixer Runner Relationship Specialty Start Date End Date No Ref-Primary, Physician PCP - General 09/26/21 Natalia Christine MD [address] [place] [address] Assigned PCP 07/31/22 Meka Sandy APRN PROFESSIONAL SERVICES CONSULTANT [address] [facility] 100 [place] [address] Assigned OBGYN Provider 03/08/23 Ioana Cho AuD [address] [facility] 200 [place] [address] Streetsweeper Operator Audiology 05/20/23 [place] [address] [place] [address] [place] [address] Otolaryngology 05/20/23 documented as of this encounter
[2024-11-24 20:34] LABS: C Reactive Protein* 0.9 mg/dL (0.5-1.0)
[2024-11-24 21:11] VITALS: BP 131/91; PULSE 84; RESP 20; O2SAT 98
[2024-11-24 22:25] VITALS: BP 131/85; PULSE 85; RESP 16; TEMP 37.4; O2SAT 98
[2024-11-24 22:44] VITALS: TEMP 37.4
[2024-11-24] MEDS: KETOROLAC 15 MG/ML inj IVP (22:44)
[2024-11-24] MEDS: 0.9 % SODIUM CHLORIDE 1000 ml 1,000 ML 500 ML IV (22:44)
[2024-11-24] MEDS: ONDANSETRON 2 MG/ML inj 4 MG IVP (22:44)
[2024-11-24 22:51] VITALS: BP 126/81; PULSE 86; RESP 18; O2SAT 96
[2024-11-24] MEDS: PIPERACILLIN/TAZOBACTAM 3.375 GM in 0.9 % SODIUM CHLORIDE Mini-bag 100 ML IVPB (23:03)
[2024-11-25] VITALS (17 sets, daily range): BP systolic 112–133; BP diastolic 67–96; PULSE 60–98; RESP 15–21; TEMP 37–37.4; O2SAT 95–98
[2024-11-25] MEDS: LACTATED RINGERS 1000 ML 1,000 ML 125 ML IV (01:23)
--- NOTE | 2024-11-25 05:12 | PM.GSCN ---
History of Present Illness Consult details Date Seen: 11/25/24 Consult date: 11/25/24 Narrative: 29-year-old female presented to emergency room with right lower quadrant abdominal pain. Patient states that her pain started 2 days ago. The pain was constant but gout. Patient continued to tolerate regular diet. She developed nausea with 1 episode of vomiting and that prompted her to come to the emergency room. Patient continues to pass gas. She denies fevers. She denies prior similar episodes of pain. I personally reviewed her workup in the emergency room. Patient was found to have elevated WBC of 13. Abdominal CT was obtained that showed mildly dilated wall enhancing appendix with no periappendiceal abscess. There are no dilated loops of small large intestine. Review of Systems Narrative: General: no fevers HENT: no problems swallowing CV: no shortness of breath Resp: no cough GI: No nausea, vomiting, abdominal pain : no dysuria, no increased urinary frequency, no hematuria Skin: no new rashes Musculoskeletal: no back pain Neuro: no muscle weakness Psyche: no depression, no anxiety PFSH PFSH Medical History (Updated 11/24/24 @ 23:21 by Pam Vazquez MD) PCOS (polycystic ovarian syndrome) ?E28.2 - Polycystic ovarian syndrome (ICD-10) Surgical History (Updated 11/24/24 @ 20:10 by Sami Hyde RN) No significant past surgical history Social History (Updated 11/25/24 @ 05:14 by Giuseppe Guan MD) Narrative: Patient does admit to smoking and drinking alcohol. 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 Meds Home Medications and Allergies Home Medications ?Medication ?Instructions ?Recorded ?Confirmed ?Type fluticasone propionate 50 2 spray intranasal DAILY 11/24/24 11/24/24 History mcg/actuation nasal spray,suspension Allergies Allergy/AdvReac Type Severity Reaction Status Date / Time No Known Drug Allergies Allergy Verified 11/24/24 22:09 Exam Narrative: Exam Narrative: General appearance: Alert, cooperative, and in no distress Pulmonary: Chest symmetric, lungs clear bilaterally Cardiovascular Heart: Regular rate and rhythm, S1, S2, no murmurs/rubs/gallops Gastrointestinal Abdominal: soft, not distended, tender to palpation in the right lower quadrant with rebound tenderness. Skin: Normal skin color, texture, and turgor. No rashes or lesions. Psychiatric: Alert, cooperative, normal affect. Const: Vital Signs, click to edit/add: Vital Signs - 24 hr 11/24/24 19:11 11/24/24 21:11 11/24/24 22:25 Temperature 99.3 F 99.3 F Pulse Rate 84 Pulse Rate [Pulse Oximeter] 90 85 Respiratory Rate 16 20 16 Blood Pressure 131/91 H Blood Pressure [Ri ght Upper Arm] 145/88 H 131/85 Pulse Oximetry 98 98 98 Oxygen Delivery Me thod Room Air Room Air 11/24/24 22:44 11/24/24 22:51 11/25/24 00:01 Temperature 99.3 F Pulse Rate 86 79 Pulse Rate [Pulse Oximeter] Respiratory Rate 18 18 Blood Pressure 126/81 127/69 Blood Pressure [Ri ght Upper Arm] Pulse Oximetry 96 98 Oxygen Delivery Me thod 11/25/24 00:18 11/25/24 00:56 11/25/24 02:01 Temperature 99.3 F Pulse Rate 98 Pulse Rate [Pulse Oximeter] Respiratory Rate 18 Blood Pressure 118/67 Blood Pressure [Ri ght Upper Arm] Pulse Oximetry 98 97 Oxygen Delivery Me thod Results Labs Labs: Abnormal lab results 11/24/24 11/24/24 Range/Units 19:54 20:05 WBC 13.16 H (4.50-11.00) K/uL Neut # (Auto) 8.70 H (1.7-7.0) K/uL [place] # (Auto) 1.20 H (0.00-0.90) K/UL Urine Blood Trace-intact A (Negative) Diabetes panel 11/24/24 Range/Units 20:05 Sodium 137 (135-149) mmol/L Potassium 4.2 (3.6-5.1) mmol/L Chloride 105 (96-114) mmol/L Carbon Dioxide 22 (20-32) mmol/L BUN 11 (5-24) mg/dL Creatinine 0.7 (0.5-1.5) mg/dL Glucose 89 (60-115) mg/dL Calcium 9.1 (8.4-10.6) mg/dL Calcium panel 11/24/24 Range/Units 20:05 Calcium 9.1 (8.4-10.6) mg/dL Pituitary panel 11/24/24 Range/Units 20:05 Sodium 137 (135-149) mmol/L Potassium 4.2 (3.6-5.1) mmol/L Chloride 105 (96-114) mmol/L Carbon Dioxide 22 (20-32) mmol/L BUN 11 (5-24) mg/dL Creatinine 0.7 (0.5-1.5) mg/dL Glucose 89 (60-115) mg/dL Calcium 9.1 (8.4-10.6) mg/dL Adrenal panel 11/24/24 Range/Units 20:05 Sodium 137 (135-149) mmol/L Potassium 4.2 (3.6-5.1) mmol/L Chloride 105 (96-114) mmol/L Carbon Dioxide 22 (20-32) mmol/L BUN 11 (5-24) mg/dL Creatinine 0.7 (0.5-1.5) mg/dL Glucose 89 (60-115) mg/dL Calcium 9.1 (8.4-10.6) mg/dL All other labs normal. Progress Note:A&P Assessment and plan (1) Acute appendicitis: Status: Acute Plan 29-year-old female presents with early acute appendicitis. I discussed with the patient and her boyfriend my clinical findings and her laboratory and CT findings. Patient does have elevated WBC and CT showing well enhancing prominent appendix. On clinical exam, patient has tenderness to palpation in the right lower quadrant. These findings are suspicious for acute appendicitis. I recommended to proceed with laparoscopic appendectomy. The procedure was discussed in detail. The risks associated procedure including infection, bleeding, injury to intra-abdominal organs, and the need for additional procedures were all discussed with the patient, she agreed to proceed.
[2024-11-25] MEDS: CEFAZOLIN 1 GM inj IVP (05:42)
[2024-11-25] MEDS: BUPIVACAINE 0.25% 30 ML INJECTION (05:50)
[2024-11-25] MEDS: LIDOCAINE 1%-EPI 1:100,000 20 ML INFILTRATI (05:50)
--- NOTE | 2024-11-25 06:18 | PM.GSPRC ---
Operative Note Date of procedure: 11/25/24 Pre-op diagnosis: 1. Acute appendicitis. Post-op diagnosis: Same Type of Procedure: 1. Laparoscopic appendectomy. Indications: 29-year-old female presented to emergency room with right lower quadrant abdominal pain of 2 days. The pain was persistent and patient developed nausea. Upon her workup she was found to have an elevated WBC of 13. An abdominal CT was obtained that showed dilated wall enhancing appendix concerning for early acute appendicitis. On clinical exam patient had tenderness to palpation in the right lower quadrant with rebound tenderness. Given patient's history and her clinical exam, acute appendicitis was suspected, and laparoscopic appendectomy was recommended. The procedure was discussed in detail. The risks associated procedure including infection, bleeding, injury to intra-abdominal organs, and the need for additional procedures were all discussed with the patient, and she agreed to proceed. Procedure Description: After discussing the risks and benefits of the procedure, the patient signed informed consent.? The operative site was marked and the patient was brought to the operating room and placed on the operating table in supine position.? Care was taken to pad the patient's pressure points.?? The patient was then intubated by anesthesia.?? The operative site was then prepped and draped in the usual sterile fashion.? A time-out was then performed. A 5-mm laparoscopy port was placed in the left upper quadrant guided by a 5-mm laparoscope placed into a translucent trochar. Passage through the layers of the abdominal wall was visualized with the laparoscope. A pneumoperitoneum was established. A 30-degree 5-mm laparoscope was advanced into the abdomen. The abdomen was briefly surveyed, and there was no evidence of diffuse peritonitis. A 12-mm port was placed in the left low quadrant and an additional 5 mm port was placed infraumbilically under direct visualization by laparoscope. Left upper quadrant entrance port was then examined intraabdominally by placing the camera through the left lower quadrant port and no intraabdominal injury was seen. The patient was placed in Trendelenburg position, allowing the abdominal contents to shift cephalad. The small bowel was moved toward the midline in the abdomen and this allowed for identification of the appendix. It appeared to be inflamed. The appendix was grasped and dissected from the peritoneum using Harmonic scalpel. A [place] clamp was passed between the appendiceal mesentery and the base of the appendix, creating a window. Appendiceal mesentery was skeletonized with Harmonic scalpel. Appendiceal mesentery was then clipped with 3 5 mm clips on the patient's side and divided with Harmonic scalpel near the appendix. A vascular load Endo-YOON stapler was advanced through the 12-mm port into the abdomen and appendix was stapled off at its base. The appendix was then placed in an endoscopic retrieval bag and extracted from the abdomen through the 12-mm port. The abdomen was surveyed for hemostasis. And no bleeding was seen. The 12-mm port was withdrawn and the fascial defect was closed with 0-0 Vicryl stitch using Cralos Ariella needle under direct visualization. The 5-mm port was removed under direct visualization. The left upper quadrant port was used to evacuate the pneumoperitoneum and then withdrawn. The skin incisions were closed with 4-0 monocryl. Steri-Strips were applied over the incisions. All counts were correct at the end of the case. The patient tolerated this procedure well and was transferred to PACU in stable condition. Findings: Inflamed appendix with no evidence of perforation or abscess. Anesthesia: GETA Surgeon: Giuseppe Guan MD Estimated blood loss (mL): 5 Specimen: Appendix Condition: stable Disposition: PACU
--- NOTE | 2024-11-25 06:35 | P.ANES_ITS ---
Anesthesia Charges Start Date/Time Anesthesia Start Date: 11/25/24 Anesthesia Start Time: 05:29 Stop Date/Time Anesthesia Stop Date: 11/25/24 Anesthesia Stop Time: 06:33 Summary Emergency: INSTRUCTOR FLYING Coding CPT Codes CPT Codes: ANESTH SURG LOWER ABDOMEN - 87464 ([id number]) P2 - PATIENT W/MILD SYST DISEASE, QZ - INSTRUCTOR FLYING SVC W/O ENTERPRISE APPLICATIONS MANAGER BY Additional Codes: Summary - Extremes of Age - Over 70 or under 1: ([id number]) Summary - Emergency: INSTRUCTOR FLYING ([id number])
--- NOTE | 2024-11-25 06:35 | W.ANESCHARGE ---
Anesthesia Charges Start Date/Time Anesthesia Start Date: 11/25/24 Anesthesia Start Time: 05:29 Stop Date/Time Anesthesia Stop Date: 11/25/24 Anesthesia Stop Time: 06:33 Summary Emergency: EDGE POLISHER Coding CPT Codes CPT Codes: ANESTH SURG LOWER ABDOMEN - 19994 ([id number]) P2 - PATIENT W/MILD SYST DISEASE, QZ - EDGE POLISHER SVC W/O PRIMER ASSEMBLER BY Additional Codes: Summary - Extremes of Age - Over 70 or under 1: ([id number]) Summary - Emergency: EDGE POLISHER ([id number])
[2024-11-25] MEDS: ONDANSETRON 2 MG/ML inj 4 MG IVP (07:08)
[2024-11-25] MEDS: HYDROCODONE-ACETAMIN 5-325 MG 1 TAB PO (07:59)
== END 2024-11-25 08:20 | disposition home or self-care (01) ==
LOC: ED 11-25 05:13 → SS 11-25 05:29
PROVIDERS: Emergency Provider Family Medicine; Visit Provider Surgery
PROC: 0DTJ4ZZ Resection of Appendix, Percutaneous Endoscopic Approach (ICD-10-PCS; CPT 44970; principal; 2024-11-25 05:30)
DX: K35.80 Unspecified acute appendicitis (principal); R10.31 Right lower quadrant pain; E28.2 Polycystic ovarian syndrome
CPT/HCPCS: 44970; 00840; 36415; 74177; 80048; 81001; 81025; 83605; 85025; 86140; 88304; 94761; 99140; 99284; 99285; A9270; J0665; J0690; J1100; J1630; J1885; J2371; J2405; J2543; J2704; J2710; J3010; J7030; J7120; Q9967